=== PATIENT | female | born 1965 | race Two or more races ===

== ENCOUNTER → 2017-05-19 | Emergency (ER) | payer OTHER ==
[~2017-05-19] VITALS: Ht 157.5 cm; Wt 72.6 kg
[~2017-05-19] MED LIST: ALLEGRA ALLERGY60 MG; PREMARIN0.45 MG
== END | disposition home or self-care (01) ==
LOC: ER 00:07
DX: T16.1XXA Foreign body in right ear, initial encounter (principal); X58.XXXA Exposure to other specified factors, initial encounter; Y93.E1 Activity, personal bathing and showering; Y92.091 Bathroom in other non-institutional residence as the place of occurrence of the external cause; Y99.8 Other external cause status